=== PATIENT | male | born 1955 | race Caucasian/White ===

== ENCOUNTER → 2019-04-06 | Outpatient (CLI) | payer OTHER ==
[~2019-04-06] MED LIST: ALBU18HF INH; ALBU8.5H8 PO; ALFU10TA PO; AMOX1TAB61 PO; BENZ200C48 PO; BUDE180A PO; CHOL10003 PO; CHOL2000 PO; FEXO180T15 PO; FLUT16SP2 NS; GADOXETATE DISODIUM 2.5 MMOL/10 ML ONE; IBUP-11 PO; LISI1TAB20 PO; MAGN400T9 PO; MOEX1TAB6 PO; MOME220A10 INH; MULT-412 PO; NAPR-816 PO; OSELTAMIVIR; RANI-448 PO; SILD25TA PO; SIMV40TA3 PO; [UNRECOGNIZED DRUG - OTHER]; immunotherapy IM
== END | disposition home or self-care (01) ==
LOC: CFH 09:05
PROVIDERS: ATTEND Internal Medicine Gastroenterology
DX: D18.09 Hemangioma of other sites (principal); J45.909 Unspecified asthma, uncomplicated; K21.9 Gastro-esophageal reflux disease without esophagitis; E78.00 Pure hypercholesterolemia, unspecified; I10 Essential (primary) hypertension; Z79.899 Other long term (current) drug therapy
CPT/HCPCS: 74183; A9581